=== PATIENT | female | born 1935 | race American Indian/Alaskan Native ===

== ENCOUNTER 2017-08-04 13:24 | Emergency (ER) | payer MEDICARE, OTHER ==
[2017-08-04 13:49] VITALS: BP 149/77
[2017-08-04] MEDS ORDERED: Sodium Chloride 0.9% 1,000 ML IV STA (14:31)
--- NOTE | 2017-08-04 14:40 | EDM.PDOC ---
ED HPI GENERAL MEDICAL PROBLEM - General Chief Complaint: Abdominal Pain Stated Complaint: RT ABDOMINAL/FLANK PAIN Time Seen by Provider: 08/04/17 14:24 Source of Information: Reports: Patient, RN Notes Reviewed History Limitations: Reports: No Limitations - History of Present Illness INITIAL COMMENTS - FREE TEXT/NARRATIVE: 82-year-old female presents emergency department today with a complaint of abdominal pain, she states the pain has been ongoing for the last 4 weeks stays about the same is predominantly on the right side right upper quadrant region, she has been evaluated by the clinic with her primary care to do trial of Prilosec without any relief. She denies any nausea shortness of breath or chest pain denies any problems bowel movements no positional change Right Upper Abdominal Pain Score (Numeric/FACES): 3 - Related Data Allergies Allergy/AdvReac Type Severity Reaction Status Date / Time codeine Allergy Hives Verified 08/04/17 13:49 Penicillins Allergy Hives Verified 08/04/17 13:50 Past Medical History HEENT History: Reports: Impaired Vision Cardiovascular History: Reports: High Cholesterol Gastrointestinal History: Reports: Hemorrhoids [employer] History: Reports: Other OB/BYN History: C SECTION Psychiatric History: Reports: Depression Endocrine/Metabolic History: Reports: Hypothyroidism - Infectious Disease History Infectious Disease History: Reports: Measles - Past Surgical History Other HEENT Surgeries/Procedures: PARTIAL UPPER PLATE/DENTAL Musculoskeletal Surgical History: Reports: Knee Replacement Social & Family History - Tobacco Use Smoking Status *Q: Unknown Ever Smoked ED ROS GENERAL - Review of Systems Review Of Systems: See Below Constitutional: Reports: No Symptoms HEENT: Reports: No Symptoms Respiratory: Reports: No Symptoms Cardiovascular: Reports: No Symptoms GI/Abdominal: Reports: Abdominal Pain, Flatus : Reports: No Symptoms Musculoskeletal: Reports: No Symptoms Skin: Reports: No Symptoms Neurological: Reports: No Symptoms ED EXAM, GI/ABD - Physical Exam Exam: See Below Text/Narrative:: General: Female, not in any distress, alert and oriented x3 HEENT: head is atraumatic normocephalic, eyes pupils equal round reactive to light, sclera clear no conjunctivitis appreciated. Ears tympanic membranes clear and blanco landmarks and light reflex are present bilaterally canals are clear. Nose no septal deviation, nares are clear, no blood present. Mouth mucosa is moist and pink no erythema or exudate noted in soft palate, tongue is midline uvula is midline, dentures in place. Neck: Supple no thyromegaly no tracheal deviation. Nodes: Cervical nodes subclavicular nodes nontender no palpable lymphadenopathy noted. Lungs: clear to auscultation bilaterally with symmetrical respirations, no adventitious noise appreciated. CV: Regular rate and rhythm S1 and S2 appreciated no murmurs rubs or gallops noted. Abdomen: Soft, tender right flank right CVA area, no palpable masses or organomegaly appreciated, no distention no guarding bowel sounds are present, . Neuro: Cranial nerves II through XII grossly intact Skin: Warm and dry, intact Extremities: No lower extremity edema appreciated, Course - Vital Signs Last Recorded V/S: Last Vital Signs Temp 98.5 F 08/04/17 13:44 Pulse 89 08/04/17 13:44 Resp 15 08/04/17 13:44 BP 149/77 H 08/04/17 13:44 Pulse Ox 96 08/04/17 13:44 - Orders/Labs/Meds Orders: Active Orders 24 hr Category Date Time Status Peripheral IV Care [RC] . DIRECTED Care 08/04/17 14:31 Active Abdomen Pelvis w Cont [CT] Urgent Exams 08/04/17 14:31 Taken CULTURE URINE [RM] Urgent Lab 08/04/17 16:06 Ordered Iopamidol [Isovue-300 (61%)] Med 08/04/17 14:53 Active 100 ml IV . DIRECTED PRN Sodium Chloride 0.9% [Normal Saline] 74 ml Med 08/04/17 15:00 Active IV ASDIRECTED Sodium Chloride 0.9% [Saline Flush] Med 08/04/17 14:31 Active 10 ml FLUSH ASDIRECTED PRN Peripheral IV Insertion Adult [OM.PC] Urgent Oth 08/04/17 14:31 Ordered Medication Orders Sodium Chloride (Normal Saline) 74 mls @ 3 mls/sec IV ASDIRECTED TONY Stop: 08/04/17 23:00 Last Admin: 08/04/17 15:23 Dose: 3 mls/sec Iopamidol (Isovue-300 (61%)) 100 ml IV . DIRECTED PRN PRN Reason: RADIOLOGY EXAM Stop: 08/05/17 14:54 Last Admin: 08/04/17 15:24 Dose: 100 ml Sodium Chloride (Saline Flush) 10 ml FLUSH ASDIRECTED PRN PRN Reason: Keep Vein Open Last Admin: 08/04/17 15:14 Dose: 10 ml Admin: 08/04/17 14:51 Dose: 10 ml Labs: Laboratory Tests 08/04/17 08/04/17 08/04/17 Range/Units 14:45 14:45 14:50 WBC 8.3 (4.5-11.0) K/uL RBC 3.86 (3.30-5.50) M/uL Hgb 11.1 L (12.0-15.0) g/dL Hct 34.5 L (36.0-48.0) % MCV 89 (80-98) fL MCH 29 (27-31) pg MCHC 32 (32-36) % Plt Count 170 (150-400) K/uL Neut % (Auto) 66 (36-66) % Lymph % (Auto) 12 L (24-44) % [place] % (Auto) 22 H (2-6) % Eos % (Auto) 0 L (2-4) % Baso % (Auto) 1 (0-1) % Sodium 143 (140-148) mmol/L Potassium 3.1 L (3.6-5.2) mmol/L Chloride 108 (100-108) mmol/L Carbon Dioxide 27 (21-32) mmol/L Anion Gap 11.1 (5.0-14.0) mmol/L BUN 15 (7-18) mg/dL Creatinine 0.8 (0.6-1.0) mg/dL Est Cr Clr Drug Dosing 46.01 mL/min Estimated GFR (MDRD) > 60 (>60) Glucose 140 H (74-106) mg/dL Calcium 8.0 L (8.5-10.1) mg/dL Total Bilirubin 0.2 (0.2-1.0) mg/dL AST 25 (15-37) U/L ALT 20 (12-78) U/L Alkaline Phosphatase 119 H (46-116) U/L Total Protein 7.3 (6.4-8.2) g/dL Albumin 2.8 L (3.4-5.0) g/dL Globulin 4.5 H (2.3-3.5) g/dL Albumin/Globulin Ratio 0.6 L (1.2-2.2) Urine Color Yellow Urine Appearance Cloudy Urine pH 6.0 (4.5-8.0) Ur Specific [place] 1.015 (1.008-1.030) Urine Protein Negative (NEGATIVE) mg/dL Urine Glucose (UA) Normal (NEGATIVE) mg/dL Urine Ketones Negative (NEGATIVE) mg/dL Urine Occult Blood Large (NEGATIVE) Urine Nitrite Negative (NEGATIVE) Urine Bilirubin Negative (NEGATIVE) Urine Urobilinogen 4 (NORMAL) mg/dL Ur Leukocyte Esterase Negative (NEGATIVE) Urine RBC 20-30 H (0-5) Urine WBC 5-10 H (0-5) Ur Epithelial Cells Moderate Amorphous Sediment Few Urine Bacteria Few Urine Mucus Moderate Urine Other See note Meds: Medications Generic Name Dose Route Start Last Admin Trade Name Freq PRN Reason Stop Dose Admin Sodium Chloride 74 mls @ 3 mls/sec 08/04/17 15:00 08/04/17 15:23 Normal Saline IV 08/04/17 23:00 3 mls/sec ASDIRECTED TONY Administration Iopamidol 100 ml 08/04/17 14:53 08/04/17 15:24 Isovue-300 (61%) IV 08/05/17 14:54 100 ml . DIRECTED PRN Administration RADIOLOGY EXAM Sodium Chloride 10 ml 08/04/17 14:31 08/04/17 15:14 Saline Flush FLUSH 10 ml ASDIRECTED PRN Administration Keep Vein Open Discontinued Medications Generic Name Dose Route Start Last Admin Trade Name Freq PRN Reason Stop Dose Admin Sodium Chloride 1,000 mls @ 999 mls/hr 08/04/17 14:31 08/04/17 14:51 Normal Saline IV 08/04/17 15:31 999 mls/hr .BOLUS STA Administration Departure - Departure Time of Disposition: 16:16 Disposition: Home, Self-Care 01 Condition: Good Clinical Impression: Urinary tract infection Qualifiers: Urinary tract infection type: acute cystitis Hematuria presence: with hematuria Qualified Code(s): N30.01 - Acute cystitis with hematuria - Discharge Information Referrals: PCP,None [Primary Care Provider] - Forms: ED Department Discharge Additional Instructions: Take full course of antibiotics, please follow-up with your primary care provider in 3-5 days, call or return to the emergency department worsening of symptoms - My Orders Last 24 Hours: My Active Orders 08/04/17 14:31 Peripheral IV Care [RC] . DIRECTED Abdomen Pelvis w Cont [CT] Urgent Sodium Chloride 0.9% [Saline Flush] 10 ml FLUSH ASDIRECTED PRN Peripheral IV Insertion Adult [OM.PC] Urgent 08/04/17 14:53 Iopamidol [Isovue-300 (61%)] 100 ml IV . DIRECTED PRN 08/04/17 15:00 Sodium Chloride 0.9% [Normal Saline] 74 ml IV ASDIRECTED 08/04/17 16:06 CULTURE URINE [RM] Urgent - Assessment/Plan Last 24 Hours: My Active Orders 08/04/17 14:31 Peripheral IV Care [RC] . DIRECTED Abdomen Pelvis w Cont [CT] Urgent Sodium Chloride 0.9% [Saline Flush] 10 ml FLUSH ASDIRECTED PRN Peripheral IV Insertion Adult [OM.PC] Urgent 08/04/17 14:53 Iopamidol [Isovue-300 (61%)] 100 ml IV . DIRECTED PRN 08/04/17 15:00 Sodium Chloride 0.9% [Normal Saline] 74 ml IV ASDIRECTED 08/04/17 16:06 CULTURE URINE [RM] Urgent Plan: Assessment Acuity = acute Site and laterality = urinary tract infection Etiology = probable bacterial cause Manifestations = right sided abdominal pain Location of injury = Home Lab values = hemoglobin low 11.1 consistent with normochromic anemia potassium low at 3.1 consistent hypokalemia albumin low at 2.8 consistent hypoalbuminemia urinalysis reveals RBCs a 20-30 consistent with hematuria WBCs 5-10 consistent with pyuria cultures pending, CT scan shows no acute process Plan I did review lab work and CT scan results with her elected to treat with Bactrim DS 1 tab by mouth twice a day 5 days follow-up with primary care in 3- 5 days for reevaluation Patient was in agreement with the plan all questions were answered, they were instructed to return to the emergency department or call for worsening symptoms. This note was dictated using [employer] voice recognition software please call with any questions.
[2017-08-04] MEDS: Sodium Chloride 0.9% 10 ML Syringe FLUSH PRN ×2 (14:51→15:14)
[2017-08-04] MEDS ORDERED: Iopamidol 612 MG/ML 100 ML Bottle IV PRN (14:53)
== END 2017-08-04 16:38 | disposition home or self-care (01) ==
LOC: JP.ED 13:24
DX: N30.01 Acute cystitis with hematuria (principal); E78.00 Pure hypercholesterolemia, unspecified; F32.9 Major depressive disorder, single episode, unspecified; E03.9 Hypothyroidism, unspecified; Z96.659 Presence of unspecified artificial knee joint; Z98.890 Other specified postprocedural states; Z88.0 Allergy status to penicillin; Z88.5 Allergy status to narcotic agent
CPT/HCPCS: 36415; 74177; 80053; 81001; 85025; 87086; 96360; 99283; 99284; J7030; J7040; J7050; Q9967